=== PATIENT | female | born 1970 | race Caucasian/White ===

== ENCOUNTER 2019-08-25 23:30 | Inpatient (IN) | payer OTHER ==
[~2019-08-25] VITALS: Ht 162.6 cm; Wt 90.3 kg
[2019-08-26] VITALS (15 sets, daily range): BP systolic 125–146; BP diastolic 69–93
[2019-08-26] MEDS ORDERED: VENLAFAXINE HC150 MG PO (00:07)
[2019-08-26] MEDS ORDERED: TRAZODONE HCL100 MG PO (00:10)
[2019-08-26] MEDS ORDERED: ATIVAN0.5 M1 PO (00:11)
--- NOTE | 2019-08-26 03:25 | NUR ---
PT IS A DIRECT ADMIT FROM [facility]. PT WAS TRANSFERRED TO [facility]. PT IS ADMITTIED WITH PNEUMONIA VS CHF EXAC. PT IS EXPERINCING SHORTNESS OF AIR/DIFFICULTY BREATHING. PT IS ALERT AND ORIENTED, STABLE. VITAL SIGNS STABLE WITH TARCHYCARDIA NOTED ON THE MONITOR. ADMISSION EDUCATION AND ASSESSMENT COMPLETED. PT IS SEEN BY NURSE PRACTITION. ADMISSION EDUCATION AND ASSESSMENT COMPLETED. PT DENIES ANY PAIN. CONITNUE TO MONITOR BREATHING. NO FURTHER NEEDS REQUESTED AT THIS TIME.
[2019-08-26 04:58] LABS: HEMATOCRIT 38.3 % (37.0-47.0); HEMOGLOBIN 12.4 gm/dL (12.0-15.0); MCH 28.9 pg (26.0-34.0); MCHC 32.3 g/dL (28.0-37.0); MCV 89.5 fL (80.0-100.0); RBC 4.29 mil/uL (4.20-5.00); RDW 15.4 % (10.5-14.5); WBC 25.7 thou/uL (4.0-11.0)
[2019-08-26 05:20] LABS: CALCIUM 8.8 mg/dL (8.5-10.1); CREATININE 0.9 mg/dL (0.6-1.0); POTASSIUM 3.9 mmol/L (3.5-5.1); TOTAL BILIRUBIN 0.3 mg/dL (<0.1-1.0); TOTAL PROTEIN 6.7 g/dL (6.4-8.2); TROPONIN-I 0.06 ng/mL (<0.06)
--- NOTE | 2019-08-26 11:02 | 2DMMODE ---
[facility] [address] [place] [address] 2 D/M-MODE ECHOCARDIOGRAM Name: ELIZABETH AVERY Room #: 207-P ADM IN M.R.#: [id number] Admission: 08/25/19 Attend Phys: Deborah Pate Discharge: Date of : 68 Report #: [id number] THIS REPORT FOR: //name// APPROVED REPORT Study performed: 08/26/2019 08:20:10 EXAM: Limited 2D, Doppler, and color-flow Echocardiogram Patient Location: Bedside Room #: 207 Status: routine BSA: 1.97 HR: 108 bpm BP: 136/92 mmHg Rhythm: Tachycardia Other Information Study Quality: Good Indications Dyspnea. Hx: COPD, HTN. 2D Dimensions IVSd: 8.63 (7-11mm) LVDd: 58.00 mm PWd: 10.16 (7-11mm) LVDs: 47.56 (25-40mm) Aortic Valve AoV Peak Peter.: 1.45 m/s AO Peak Gr.: 8.37 mmHg Tricuspid Valve TR Peak Peter.: 3.08 m/s RAP Estimate: 10.00 mmHg TR Peak Gr.: 38.00 mmHg PA Pressure: 48.00 mmHg Left Ventricle Left ventricle is at the upper limits of normal. There is global hypokinesis of the left ventricle. There is normal left ventricular wall thickness. Left ventricular systolic function is mildly decreased. LVEF is 45%. This study is not technically sufficient to allow evaluation of the LV diastolic function. Right Ventricle The right ventricle is normal size. The right ventricular systolic [facility] [address] [place] [address] 2 D/M-MODE ECHOCARDIOGRAM Name: ELIZABETH AVERY Room #: 207-P ADM IN M.R.#: [id number] Admission: 08/25/19 Attend Phys: Deborah Pate Discharge: Date of : 68 Report #: [id number] function is normal. Atria Left atrium is dilated. The right atrium size is normal. Aortic Valve The aortic valve is normal in structure. Mild to moderate aortic regurgitation. There is no aortic valvular stenosis. Mitral Valve The mitral valve is normal in structure. Severe mitral regurgitation. Tricuspid Valve The tricuspid valve is normal in structure. Mild tricuspid regurgitation. Estimated PAP is 45mmHg Great Vessels IVC borderline dilated and collapses about 50% with inspiration. Pericardium There is no pericardial effusion. <Conclusion> Left ventricular systolic function is mildly decreased. There is global hypokinesis of the left ventricle. LVEF is 45%. The aortic valve is mildly sclerotic. Mild to moderate aortic regurgitation, no stenosis. The mitral valve is normal in structure. Severe mitral regurgitation. Mild tricuspid regurgitation. Estimated pulmonary artery pressure of 45mmHg There is no pericardial effusion. <ELECTRONICALLY SIGNED> By: Bernardo Barnhart MD, FAC 08/26/191101 01 01 Bernardo Barnhart MD, [facility] /INF
--- NOTE | 2019-08-26 12:57 | CATHLAB ---
[facility] [address] [place] [address] INVASIVE PROCEDURE REPORT Name: ELIZABETH AVERY Room #: 207-P ADM IN M.R.#: [id number] Admission: 08/25/19 Attend Phys: Deborah Pate Discharge: Date of : 68 Report #: [id number] THIS REPORT FOR: //name// APPROVED REPORT Study performed: 08/26/2019 11:02:30 Patient Details Patient Status: In-Patient Room #: 207 The patient is a 48 year-old female Event Personnel Bernardo Barnhart Electrical Intern, Zoe Saldaña RN RN, Vivien Hodges RTR, EXAM PROCTOR Monitor, Zi Bowen RTR Scrub Procedures Performed Art Access - R femoral artery* Zhen Access - R femoral vein Right and Left Heart Cath w/or w/o Coronarie [id number] RLHC Hemostasis w/ Mynx Hemostasis with Manual pressure 39483 Initial Mod Sed Same Phys/QHP Gr5y 439015 65787 Mod Sed Same Phys/QHP Ea 155988 Indication CHF Current Status: Yes , Dyspnea, Cardiomyopathy Procedure Narrative The patient was brought electively to the Cardiac Catheterization Laboratory and was prepped and draped in a sterile manner. The Right Groin^ was infiltrated with 1% Lidocaine subcutaneous anesthesia. A Right Heart Catheterization was performed with a 7 Fr. [place] catheter and pressure were recorded. Cardiac outputs were obtained by the Thermal Dilution method. A PINNACLE 6FR Sheath #[id number] sheath was inserted into the RFA. Coronary angiography was performed using coronary diagnostic catheters. The right coronary system was accessed and visualized with a JR4 catheter. The left coronary system was accessed and visualized with a JL4 catheter. The left ventricle was accessed and visualized with a angled pigtail catheter. Left ventricular/Aortic Valve gradient assessed via catheter pullback. Left ventriculogram was performed in 30 degree projection. Closure device was deployed with a 6 Fr MYNXGRIP 6/7F #[id number]. Hemostasis was obtained with manual pressure following sheath removal without any complications. The patient tolerated the procedure well and there were no complications associated with the procedure. There was no hematoma. [facility] [address] [place] [address] INVASIVE PROCEDURE REPORT Name: ELIZABETH AVERY Room #: 207-P [facility] IN .R.#: [id number] Admission: 08/25/19 Attend Phys: Deborah Pate Discharge: Date of : 68 Report #: [id number] Intraoperative Conscious Sedation Sedation start time: 11:29 Case end Time: 12:06 Fentanyl 100 mcg Versed 2 mg Fluoro Time: 2.07 minutes Dose: DAP 4938.60 cGycm2 565 mGy Contrast Type and Amount: Omnipaque 130 ml Diagnostic Cath Left Main Normal left main LAD Normal left anterior descending Diagonal 1 Large, single and bifurcating diagonal branch, angiographically normal Circumflex Large but nondominant circumflex OM1 High first marginal branch, angiographically normal OM2 Distally arising second marginal branch, angiographically normal Right Coronary The right coronary is angiographically normal, dominant RPLV Normal posterior lateral branch Left Ventriculography The left ventricle is normal in size with abnormalnormal contractility. The left ventricular ejection fraction is estimated to be 55-60%. Left ventricular wall motion abnormalities are not present. There is moderate-severe mitral insufficiency. Hemodynamics The right atrial mean pressure is 17 mmHg. The right ventricular pressure is 46/18 mmHg. The pulmonary artery pressure is 52/44 mmHg with a mean of 45 mmHg. The mean pulmonary capillary wedge pressure is 35 mmHg. The aortic pressure is 182/78 mmHg with a mean of 124 mmHg. The left ventricular pressure is 183/10 mmHg with a mean of mmHg. The left ventricular end diastolic pressure is 58 mmHg. There was no gradient across the aortic valve upon pullback. The cardiac output using thermo method is 5.53 L/min. The cardiac index using thermo method is 2.81 L/min/m2. Conclusion 1. Global and regional left ventricular systolic function at the lower limits of normal. Ejection fraction 55-60% 2. Severe mitral regurgitation suggested. Correlation with [facility] [address] [place] [address] INVASIVE PROCEDURE REPORT Name: ELIZABETH AVERY Room #: 207-P ADM IN M.R.#: [id number] Admission: 08/25/19 Attend Phys: Deborah Pate Discharge: Date of : 68 Report #: [id number] echocardiography recommended 3. Normal coronary vasculature. Right coronary dominant circulation. 4. Elevated right heart pressures including pulmonary artery wedge pressure <ELECTRONICALLY SIGNED> By: Bernardo Barnhart MD, [facility] 08/26/19 1256 1256 1256 Bernardo Barnhart MD, FAC /INF
--- NOTE | 2019-08-26 13:43 | EKG ---
[place] [address] [employer] [place] [address] ELECTROCARDIOGRAM REPORT Name: ELIZABETH AVERY Room #: 207-P ADM IN M.R.#: [id number] Admission: 08/25/19 Attend Phys: Deborah Lopez Discharge: Date of : 68 Report #: [id number] THIS REPORT FOR: //name// [facility] Test Date: 2019-08-26 Test Time: 08:05:10 Pat Name: ELIZABETH AVERY Department: Room: 207 P Gender: F Principal Bioinformatics Specialist: JC : 1970 Requested By: Bernardo Barnhart Order Number: [id number] MD: Bernardo Barnhart Measurements Intervals [place] Rate: 103 P: 62 VA: 148 QRS: 25 QRSD: 98 T: 72 QT: 365 QTc: 478 Interpretive Statements Sinus tachycardia Otherwise normal tracing No previous ECG available for comparison Electronically Signed On 08-26-2019 13:43:15 DRY WALL PLASTERER by Bernardo Barnhart [email or web address] <ELECTRONICALLY SIGNED> By: Bernardo Barnhart MD, [facility] 08/26/19 1343 0805 4 Bernardo Barnhart MD, FACC /EPI
--- NOTE | 2019-08-26 17:40 | NUR ---
pt and family members aware of CHF diagnoses, teaching done, pt seems somewhat anxious, teaching needs to be reinforced, family verbalizes understanding and are supportive.
--- NOTE | 2019-08-27 04:51 | NUR ---
ASSUMED PT CARE AT 1900. NO SIGN OF DISTRESS NOTED IN PT. PT IS ALERT AND ORIENTED. ASSESSMENT COMPLETED AND DOCUMENTED. GROIN SITE IS INTACT. PT IS STABLE. CONTINUE TO MONITOR BREATHING. SCHEUDLED MEDS ADMINISTERED TO PT. CONTINUE TO MONITOR, DENIES ANY FURTHER NEEDS AT THIS TIME.
[2019-08-27 05:00] VITALS: BP 145/82
[2019-08-27 05:41] LABS: HEMATOCRIT 39.2 % (37.0-47.0); HEMOGLOBIN 12.4 gm/dL (12.0-15.0); MCH 28.4 pg (26.0-34.0); MCHC 31.6 g/dL (28.0-37.0); MCV 89.8 fL (80.0-100.0); PLATELET COUNT 320 thou/uL (150-400); RBC 4.36 mil/uL (4.20-5.00); RDW 15.6 % (10.5-14.5); WBC 24.7 thou/uL (4.0-11.0)
[2019-08-27 06:27] LABS: ALBUMIN 2.9 g/dL (3.4-5.0); CALCIUM 8.8 mg/dL (8.5-10.1); CREATININE 0.9 mg/dL (0.6-1.0); MAGNESIUM 1.9 mg/dL (1.8-2.4); POTASSIUM 3.9 mmol/L (3.5-5.1); TOTAL BILIRUBIN 0.3 mg/dL (<0.1-1.0); TOTAL PROTEIN 6.5 g/dL (6.4-8.2); TROPONIN-I 0.11 ng/mL (<0.06)
[2019-08-27 06:35] LABS: PLATELET ESTIMATE NORMAL
--- NOTE | 2019-08-27 07:39 | HC ---
[facility] [place] [address] CONSULTATION Name: ELIZABETH AVERY Room #: 207-P ADM IN M.R.#: [id number] Admission: 08/25/19 Attend Phys: Deborah Lopez Discharge: Date of : 68 Report #: [id number] THIS REPORT FOR: //name// CC: FAM unknown Deborah Lopez DATE OF SERVICE: 08/27/2019 ATTENDING PHYSICIAN: Dr. Lopez. REASON FOR EVALUATION: Suspected pneumonitis. HISTORY OF PRESENT ILLNESS: Chart reviewed, the patient examined. This is a 48-year-old woman who actually dates her illness back to March or April 2019. She has had ongoing issue with nonproductive cough and some wheezing. She has been evaluated multiple times, both in outpatient as well as inpatient settings. I met at times, diagnosed with sinusitis, bronchitis. She received several courses of antibiotics and which seemed to be helpful. She was seen and admitted briefly to the hospital within the last week, noted those records. CT of the chest was otherwise clear. On presentation, she was found to have markedly elevated white count of 25.7. It is notable she has been on prednisone. ProBNP was 3462. Chest x-ray showed cardiomegaly, pulmonary vascular congestion, bilateral perihilar infiltrates. She denies any particular fevers. She notes her weight is actually increased, which she attributes to excess fluid. She underwent an echo, which was remarkable for severe mitral regurgitation. She was empirically placed on combination therapy with ceftriaxone as well as levofloxacin. She is lucid at this point. Denies significant gastrointestinal-related complaints. Her appetite has been somewhat variable. ALLERGIES: None known. CURRENT MEDICATIONS: Include lisinopril, enoxaparin, ipratropium, enoxaparin, ipratropium and albuterol inhaler, furosemide, guaifenesin, temazepam, p.r.n. analgesics, antiemetics, ceftriaxone, levofloxacin, metoprolol, famotidine, venlafaxine, trazodone, methylprednisolone, ondansetron. PAST MEDICAL HISTORY: Confirmed to have severe mitral regurgitation, cardiomyopathy, history of congestive heart failure, hypertension, left knee surgery. SOCIAL HISTORY: Former smoker. No ethanol. No illicit drug use. FAMILY HISTORY: Noncontributory. REVIEW OF SYSTEMS: Otherwise, unremarkable 10-point review of systems with [address] [address] CONSULTATION Name: ELIZABETH AVERY Room #: 207-P [facility] IN M.R.#: [id number] Admission: 08/25/19 Attend Phys: Deborah Lopez Discharge: Date of : 68 Report #: [id number] exception noted above. PHYSICAL EXAMINATION: GENERAL: She is in ueym-dr-bzleogtb distress secondary to respiratory difficulty. She is supplemented with nasal cannula oxygen. Does have what appears to be a somewhat generalized edema, although it is not as evident in lower extremities, reasonably well nourished. VITAL SIGNS: Temperature 98.2, pulse 106, respirations 18, blood pressure 145/82. SKIN: Warm, dry. HEENT: Normocephalic. Extraocular muscles intact. NECK: Supple. LUNGS: Got bilateral wheezes, diffuse rhonchi, some crackles as well. HEART: Tachycardic, regular and appears to have overtly loud systolic murmur. ABDOMEN: Somewhat distended. There is some excess abdominal wall edema. GENITOURINARY: Deferred. LABORATORY DATA: Initial white count 25.7, H and 12.4 and 38.3, platelets of 300. Electrolytes: Sodium 137, potassium 3.9, chloride 104, bicarb is 25, anion gap of 8, BUN and creatinine 16 and 0.9, glucose of 120. AST of 63, ALT of 76. Total protein of 67, albumin of 3.0. TSH 0.847. Sed rate of 15. CRP of 20.2. Chest x-ray as described above. ASSESSMENT: Pneumonitis, likely multifactorial. She describes a prolonged history of respiratory tract signs and symptoms largely contributing because the mitral regurgitation with congestive heart failure. We will continue the empiric antimicrobials for now and to get sputum for culture. We will see how she responds to current medicine regimen. Thank you, we will follow. <ELECTRONICALLY SIGNED> By: Amari Lopes MD 08/27/19 0739 0639 0729 Amari Lopes MD /nt
[2019-08-27 08:00] VITALS: BP 144/76
[2019-08-27 12:00] VITALS: BP 137/79
--- NOTE | 2019-08-27 12:00 | EKG ---
[place] [address] [place] [address] ELECTROCARDIOGRAM REPORT Name: ELIZABETH AVERY Room #: 207-P ADM IN M.R.#: [id number] Admission: 08/25/19 Attend Phys: Deborah Lopez Discharge: Date of : 68 Report #: [id number] THIS REPORT FOR: //name// [facility] Test Date: 2019-08-27 Test Time: 07:00:07 Pat Name: ELIZABETH AVERY Department: Room: 207 P Gender: F Referral Agent: Candy PRINCE : 1970 Requested By: Vincent Haji Order Number: [id number] MD: Bernardo Barnhart Measurements Intervals [place] Rate: 98 P: 50 WV: 148 QRS: 25 QRSD: 95 T: 59 QT: 357 QTc: 456 Interpretive Statements Sinus rhythm Normal tracing Compared to ECG 08/26/2019 08:05:10 Sinus tachycardia no longer present Electronically Signed On 08-27-2019 12:00:02 SHAKE CUTTER by Bernardo Barnhart [email or web address] <ELECTRONICALLY SIGNED> By: Bernardo Barnhart MD, [facility] 08/27/19 1200 0700 9 Bernardo Barnhart MD, FACC /EPI
[2019-08-27 15:55] VITALS: BP 149/87
--- NOTE | 2019-08-27 17:54 | NUR ---
PT CARE ASSUMED APPROX 0700. ASSESSMENTS CHARTED. DENIES PAIN AND SOA. VSS. UP WTIH STEADY GAIT. PT HAS SHOWER THIS SHIFT. TOLERATED. ALSO LEFT UNIT FOR SPIROMETRY STUDY. FAMILY AT BEDSIDE MOST OF SHIFT. GIVEN CLINICAL UPDATES. PT UPDATED TO POC. PT TEARFUL OFTEN. MANAGING ANXIETY WITH ATIVAN. TOLERATING POC. NO DISTRESS NOTED.
[2019-08-27 20:54] VITALS: BP 147/99
[2019-08-27 22:06] LABS: HAV IgM AB (ANTI-HAV IgM) Negative (Negative); HEPATITIS B SURFACE AG Negative (Negative); HEPATITIS C VIRUS AB <0.1 (0.0-0.9)
[2019-08-28 04:41] LABS: HEMATOCRIT 41.5 % (37.0-47.0); HEMOGLOBIN 13.5 gm/dL (12.0-15.0); MCH 28.9 pg (26.0-34.0); MCHC 32.5 g/dL (28.0-37.0); MCV 88.9 fL (80.0-100.0); RBC 4.66 mil/uL (4.20-5.00); RDW 15.4 % (10.5-14.5); WBC 20.6 thou/uL (4.0-11.0)
--- NOTE | 2019-08-28 04:43 | NUR ---
ASSUMED PT CARE AT 1900. PT IS ALERT AND ORIENTED WITH NO SIGN OF DISTRESS NOTED IN PATIENT. ASSESSMENT COMPLETED AND DOCUMENTED. PT BECAME UPSET THAT ABOUT HER TRAZODONE BEEN ON HOLD. PHYSICIAN NOTIFIED ABOUT MED BEEN ON HOLD. TRAZODONE RESUMED BY ALLOPATHIC DOCTOR. SCHEDULED MEDS ADMINISTERED TO PT. CONTINUE TO MONITOR BRETHING. DENIES ANY FURTHER NEEDS AT THIS TIME.
[2019-08-28 04:49] LABS: CALCIUM 9.7 mg/dL (8.5-10.1); CREATININE 1.2 mg/dL (0.6-1.0); POTASSIUM 3.8 mmol/L (3.5-5.1)
[2019-08-28 05:39] VITALS: BP 128/74
[2019-08-28 08:00] VITALS: BP 120/60
[2019-08-28 11:50] VITALS: BP 124/64
--- NOTE | 2019-08-28 11:51 | EKG ---
[facility] [address] [place] [address] ELECTROCARDIOGRAM REPORT Name: ELIZABETH AVERY Room #: 207-P ADM IN M.R.#: [id number] Admission: 08/25/19 Attend Phys: Deborah Lopez Discharge: Date of : 68 Report #: [id number] THIS REPORT FOR: //name// [facility] Test Date: 2019-08-28 Test Time: 11:23:39 Pat Name: ELIZABETH AVERY Department: Room: 207 P Gender: F Ferryboat Operator Helper: ANTIONETTE : 1970 Requested By: Bernardo Barnhart Order Number: [id number] MD: Bernardo Barnhart Measurements Intervals [place] Rate: 92 P: 49 CT: 135 QRS: 0 QRSD: 94 T: 41 QT: 383 QTc: 474 Interpretive Statements Sinus rhythm Normal tracing Compared to ECG 08/27/2019 07:00:07 No significant change was found Electronically Signed On 08-28-2019 11:51:08 MEN'S GARMENT FITTER by Bernardo Barnhart [email or web address] <ELECTRONICALLY SIGNED> By: Bernardo Barnhart MD, [facility] 08/28/19 1151 1123 22 Bernardo Barnhart MD, FACC /EPI
--- NOTE | 2019-08-28 17:12 | NUR ---
PT CARE ASSUMED APPROX 0700. DENIES PAIN AND SOA. VSS. ASSESSMENT CHARTED. UP WITH STEADY GAIT. PT VERY TEARFUL EXPRESSING FREQUENTLY THAT SHE WANTS TO FIX HER VAVLE ISSUES. POC EXPLAINED SEVERAL TIMES TO EDUCATE AND REASSURE PT. PT REMAINS TEARFUL AND UNSURE OF THINGS. TOLERATING POC. NO DISTRESS NOTED.
[2019-08-28 21:00] VITALS: BP 144/81
[2019-08-29 04:33] VITALS: BP 151/99
[2019-08-29 05:51] LABS: CREATININE 1.1 mg/dL (0.6-1.0); POTASSIUM 4.2 mmol/L (3.5-5.1)
--- NOTE | 2019-08-29 07:13 | NUR ---
patient cares were assumed at shif change. patient was assessed and meds were passed. patient is very anxious about her condition. passed consult to peggey the a possible cardio rehab might be needed. patient was rounded on hourly, bed in a low and locked position. patient independent in her room.
--- NOTE | 2019-08-29 09:15 | TEE ---
[facility] [address] [place] [address] TRANSESOPHAGEAL ECHOCARDIOGRAM Name: ELIZABETH AVERY Room #: 207-P ADM IN M.R.#: [id number] Admission: 08/25/19 Attend Phys: Deborah Pate Discharge: Date of : 68 Report #: [id number] THIS REPORT FOR: //name// APPROVED REPORT Study performed: 08/29/2019 08:06:03 EXAM: Transesophageal Echocardiogram Patient Location: In-Patient Room #: 207 Status: routine BSA: 1.98 HR: 102 bpm BP: 81/66 mmHg Rhythm: Sinus tach Other Information Study Quality: Good Indications Mitral regurgitation. COPD, HTN, cardiomyopathy. Echo Enhancing Agent Indication: Rule out Shunt Agent(s) / Amount(s) Used: Agitated Saline 6 cc Procedure After obtaining informed consent, patient underwent transesophageal echo in the [employer]. Type of Sedation : Conscious Sedation Sedation was administered by Blanca Slade RN. Sedation was achieved intravenously with: Versed (5) Fentanyl (200) Transesophageal probe was inserted and advanced into esophagus without difficulty by Bernardo Barnhart MD. The MIGUELITO was performed without complications. Throughout the procedure, the blood pressure, pulse oximetry, cardiac rhythm, and rate were monitored. The patient tolerated the procedure without adverse effects. Recovery from conscious sedation was uneventful and vital signs were stable. Left Ventricle Left ventricle is at the upper limits of normal. There is global [facility] [address] [place] [address] TRANSESOPHAGEAL ECHOCARDIOGRAM Name: ELIZABETH AVERY Room #: 207-P ADM IN M.R.#: [id number] Admission: 08/25/19 Attend Phys: Deborah Pate Discharge: Date of : 68 Report #: [id number] hypokinesis of the left ventricle. There is normal left ventricular wall thickness. Left ventricular systolic function is mild to moderately decreased. LVEF is 40-45%. Right Ventricle The right ventricle is normal size. The right ventricular systolic function is normal. Atria Left atrium is dilated. No thrombus is visualized in the left atrium or appendage. No shunting noted by contrast bubble injection. The right atrium size is normal in size. Highly mobile 0.8 x 0.8 cm mass adherent to the atrial septum in the right atrium. 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 Aortic Valve The aortic valve is trileaflet. 1.5 x 1.5 oval mass adherent to the aortic valve on the aortic side of the non-coronary cusp leaflet. Mild aortic regurgitation. There is no aortic valvular stenosis. Mitral Valve The mitral valve is normal in structure. Highly mobile irregular bordered mass adherent to the chordal structures of the anterior leaflet of the mitral valve Moderate to moderately severe mitral regurgitation No evidence of mitral valve stenosis. Tricuspid Valve The tricuspid valve is normal in structure. Mild tricuspid regurgitation. Pulmonic Valve The pulmonary valve is normal in structure. Trace pulmonic regurgitation. Great Vessels The aortic root is normal in size. The ascending aorta is normal in size. IVC is normal in size and collapses >50% with inspiration. Pericardium There is no pericardial effusion. Critical Notification Critical Value: Yes [facility] [address] [place] [address] TRANSESOPHAGEAL ECHOCARDIOGRAM Name: ELIZABETH AVERY Room #: 207-P ADM IN M.R.#: [id number] Admission: 08/25/19 Attend Phys: Deborah Villa [facility] Discharge: Date of : 68 Report #: [id number] <Conclusion> Left ventricular systolic function is mild to moderately decreased. There is global hypokinesis of the left ventricle. LVEF is 40-45%. No thrombus is visualized in the left atrium or appendage. No shunting noted by contrast bubble injection. The right atrium size is normal. 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 The aortic valve is trileaflet. Large 1.5 x 1.5 oval predominantly nonmobile mass adherent to the aortic valve/wall of the sinus of Valsalva on the aortic side of the non-coronary cusp leaflet. Mild aortic regurgitation, no stenosis The mitral valve is normal in structure. Highly mobile irregular bordered mass adherent to the chordal structures of the anterior leaflet of the mitral valve Moderate to moderately severe mitral regurgitation The ascending aorta is normal in size. There is no pericardial effusion. 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 Vegetations are thought to be less likely. <ELECTRONICALLY SIGNED> By: Bernardo Barnhart MD, [facility] 08/29/19914 4 4 Bernardo Barnhart MD, [facility] /INF
[2019-08-29 09:40] VITALS: BP 111/81
[2019-08-29 11:50] LABS: APTT 21.1 Seconds (24.5-32.8); INR 1.1; PROTIME 10.9 Seconds (9.3-11.4)
[2019-08-29 11:55] VITALS: BP 87/65
--- NOTE | 2019-08-29 13:50 | EKG ---
[place] [address] [facility] [place] [address] ELECTROCARDIOGRAM REPORT Name: ELIZABETH AVERY Room #: 207-P ADM IN M.R.#: [id number] Admission: 08/25/19 Attend Phys: Deborah Lopez Discharge: Date of : 68 Report #: [id number] THIS REPORT FOR: //name// [facility] Test Date: 2019-08-29 Test Time: 11:22:27 Pat Name: ELIZABETH AVERY Department: Room: 207 P Gender: F Linux Vmware Administrator: Mirian MOSQUEDA : 1970 Requested By: Farshad Keita Order Number: [id number] MD: Andrei Oscar Measurements Intervals [place] Rate: 91 P: 17 [place]: 145 QRS: 2 QRSD: 95 T: 43 QT: 401 QTc: 494 Interpretive Statements Sinus rhythm Probable left atrial enlargement Left ventricular hypertrophy Borderline prolonged QT interval Compared to ECG 08/28/2019 11:23:39 Left ventricular hypertrophy now present Electronically Signed On 08-29-2019 13:50:19 CENTRAL CONTROL ROOM OPERATOR by Andrei Oscar [email or web address] <ELECTRONICALLY SIGNED> By: Andrei Oscar MD 08/29/19 1350 1122 1122 Andrei Oscar MD /MARCO
[2019-08-29 16:30] VITALS: BP 105/75
--- NOTE | 2019-08-29 19:20 | NUR ---
ASSESSMENT CHARTED. PT ALERT AND ORIENTED REPORT HAVING CHEST PAIN. CHEST PAIN PROTOCAL INITIATED. CARDIOLOGY AND DR. JORDAN NOTIFIED. FAMILY UPDATED ON PT'S PLAN OF CARE. SEEN BY DR. MALAGON. ORDERS NOTED. PRN ANXIETY AND PAIN MED GIVEN. WILL CONTINUE TO MONITOR.
[2019-08-29 20:25] VITALS: BP 93/50
[2019-08-29 22:18] LABS: URINE BILIRUBIN NEGATIVE (Negative); URINE BLOOD NEGATIVE (Negative); URINE CLARITY CLEAR; URINE COLOR YELLOW; URINE GLUCOSE-RANDOM* NEGATIVE (Negative); URINE KETONES NEGATIVE (Negative); URINE LEUKOCYTES-REFLEX NEGATIVE (Negative); URINE NITRITE-REFLEX NEGATIVE (Negative); URINE PROTEIN (DIPSTICK) NEGATIVE (Negative); URINE SPECIFIC GRAVITY 1.025 (1.005-1.035); URINE UROBILINOGEN 0.2 E.U./dl (0.2-1.0)
[2019-08-29 23:06] LABS: GLYCOHEMOGLOBIN (HGB A1C) 5.5 % (4.8-5.6)
[2019-08-30 00:19] VITALS: BP 101/65
[2019-08-30 04:55] VITALS: BP 95/48
--- NOTE | 2019-08-30 05:12 | NUR ---
ASSUMED PT CARE AT 1900. PT IS ALERT AND ORIENTED WITH NO SIGN OF DISTRESS NOTED IN PT. SPOUSE AT BEDSIDE. PT IS STABLE. ASSESSMENT COMPLETED AND DOCUMETED. SCHEDULED MEDS ADMINISTERED TO PT. PAIN MED ADMINISTERED UPON REQUEST. VSS. PT IS STABLE THROUGHOUT THE NIGHT. DENIES ANY FURTHER NEEDS AT THIS TIME.
[2019-08-30 08:18] VITALS: BP 101/60
[2019-08-30 11:34] VITALS: BP 91/56
--- NOTE | 2019-08-30 16:15 | NUR ---
patient admits from [facility] due to insurance in network. 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 She has [employer] insurance. patient admits with pna and chf. She is found to have cardiac lesions. Eddie yesterday. Casemgt following for dc planning. Anticipate dc home no needs.
[2019-08-30 17:08] LABS: COMPLEMENT-C3 151 mg/dL (82-167); COMPLEMENT-C4 28 mg/dL (14-44)
[2019-08-30 17:26] VITALS: BP 98/56
--- NOTE | 2019-08-30 18:43 | NUR ---
PT C/O CONSTIPATION, CALLED DR JORDAN, HE STATES HE WILL PUT IN ORDERS. PT AMBULATED UNIT TODAY. ON 1 L DAVID PRN. CONCERNED ABOUT POC. WANTS TO TALK TO SOCIAL WORK ABOUT SECOND OPINION AT ANOTHER FACILITY, SPOKE WITH JORDON.
[2019-08-30 19:58] VITALS: BP 114/56
[2019-08-30 20:47] LABS: MAGNESIUM 2.4 mg/dL (1.8-2.4); POTASSIUM 3.5 mmol/L (3.5-5.1)
[2019-08-31 04:45] VITALS: BP 100/65
--- NOTE | 2019-08-31 05:41 | NUR ---
ASSUMED PT CARE AT 1900. PT IS ALERT AND ORIENTED WITH NO SIGN OF DISTRESS NOTED IN PT. CONTINUE TO MONITOR PATIENT. FAMILY AT BEDSIDE. ASSESSMENT COMPLETED AND DOCUMENTED. SCHEDULED MEDS ADMINISTERED TO PT. PT IS VERBALIZES PAIN TO THE RIGHT MID BACK AND CONSTIPATION. ALSO SHE WAS UPSET ABOUT PAIN MED (HYDORCODONE) BEEN DISCONTINUE. PT CONTINUE TO VERBALIZE PAIN DURING THE SHIFT. TYLENOL ADMINISTERED BUT NO RELIEF. PT IS WORRIED ABOUT RECENT DIGNOSIS. CONTINUE TO MONITOR PT. DENIES ANY FURTHER NEEDS AT THIS TIME.
[2019-08-31 05:48] LABS: HEMATOCRIT 43.4 % (37.0-47.0); HEMOGLOBIN 14.1 gm/dL (12.0-15.0); MCH 29.2 pg (26.0-34.0); MCHC 32.6 g/dL (28.0-37.0); MCV 89.8 fL (80.0-100.0); RBC 4.83 mil/uL (4.20-5.00); RDW 15.1 % (10.5-14.5); WBC 18.6 thou/uL (4.0-11.0)
[2019-08-31 05:59] LABS: CREATININE 1.4 mg/dL (0.6-1.0)
[2019-08-31] MEDS ORDERED: LISINOPRIL10 MG PO (08:32)
[2019-08-31] MEDS ORDERED: COREG6.25 MG PO (08:32)
[2019-08-31 08:39] VITALS: BP 126/64
[2019-08-31] MEDS ORDERED: TORSEMIDE10 MG PO (08:56)
[2019-08-31] MEDS ORDERED: METOPROLOL SUCC25 M1 PO (08:56)
[2019-08-31 09:03] LABS: COLLECTION DURATION 24 hours; TOTAL VOLUME 1500 mL
--- NOTE | 2019-08-31 10:14 | NUR ---
ASSUMED CARE OF PT APPROX 0715, A&0X4, LIKES ROOM DARK AND COLD, SPOUSE AT BEDSIDE. SEE SEPARATE INTERVENTIONS FOR ASSESSMENTS, CADIAC MONITORED, 24H URINE PICKED UP AND TAKEN TO LAB. ENCOURAGED BOTH TO USE CALL LIGHT FOR NEEDS. WILL PRINT OUT CHF INFO FOR HER SHE HAD MULTIPLE QUESTIONS. TAKES HYDROCODONE AND IT WAS D/C'D. GAVE TYLENOL AND ATIVAN TO HELP W/ANXIETY AND CHRONIC PAIN.
[2019-08-31 11:28] VITALS: BP 126/64
[2019-08-31 11:48] VITALS: BP 126/64
--- NOTE | 2019-08-31 14:06 | NUR ---
Patient sp with RN regarding a second opinion for CTS. RN requested casemgt inquire if possibility. Patient has [employer] ins which no other CTS in system. 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 All sp with patient prior to dc.
[2019-09-01 19:11] LABS: ANA INTERPRETATION Negative (())
== END 2019-08-31 12:27 | disposition home or self-care (01) | DRG 286 ==
LOC: 2N 23:30 → ENTRNSPT 08-31 11:47 → EDTRNSPTSTS 08-31 12:01 → 2N 08-31 12:27
PROVIDERS: Hospitalist; Internal Medicine; Internal Medicine Pulmonary Disease; Nurse Practitioner Acute Care; Specialist; Surgery Vascular Surgery; ADMIT Hospitalist
PROC: B2151ZZ Fluoroscopy of Left Heart using Low Osmolar Contrast (ICD-10-PCS; principal; 2019-08-26)
PROC: 4A023N8 Measurement of Cardiac Sampling and Pressure, Bilateral, Percutaneous Approach (ICD-10-PCS; principal; 2019-08-26)
PROC: B2111ZZ Fluoroscopy of Multiple Coronary Arteries using Low Osmolar Contrast (ICD-10-PCS; principal; 2019-08-26)
PROC: B24BZZ4 Ultrasonography of Heart with Aorta, Transesophageal (ICD-10-PCS; 2019-08-29)
DX: I11.0 Hypertensive heart disease with heart failure (principal); J96.21 Acute and chronic respiratory failure with hypoxia; J18.9 Pneumonia, unspecified organism; J44.1 Chronic obstructive pulmonary disease with (acute) exacerbation; J44.0 Chronic obstructive pulmonary disease with (acute) lower respiratory infection; I50.43 Acute on chronic combined systolic (congestive) and diastolic (congestive) heart failure; I42.9 Cardiomyopathy, unspecified; K21.9 Gastro-esophageal reflux disease without esophagitis; F32.9 Major depressive disorder, single episode, unspecified; F41.9 Anxiety disorder, unspecified; F17.210 Nicotine dependence, cigarettes, uncomplicated; R00.0 Tachycardia, unspecified; Z96.659 Presence of unspecified artificial knee joint; E66.9 Obesity, unspecified; I34.0 Nonrheumatic mitral (valve) insufficiency; D72.829 Elevated white blood cell count, unspecified; T38.0X5A Adverse effect of glucocorticoids and synthetic analogues, initial encounter; Y92.89 Other specified places as the place of occurrence of the external cause; Z80.1 Family history of malignant neoplasm of trachea, bronchus and lung; Z83.6 Family history of other diseases of the respiratory system; Z82.49 Family history of ischemic heart disease and other diseases of the circulatory system; Z71.6 Tobacco abuse counseling; Z68.34 Body mass index [BMI] 34.0-34.9, adult; Z79.899 Other long term (current) drug therapy
CPT/HCPCS: 10081

== ENCOUNTER 2019-09-06 13:30 | Emergency (ER) | payer OTHER ==
[~2019-09-06] VITALS: Ht 162.6 cm; Wt 92.5 kg
[~2019-09-06 13:30] MED LIST: ATIVAN0.5 M1 PO; COREG6.25 MG PO; LISINOPRIL10 MG PO; METOPROLOL SUCC25 M1 PO; TORSEMIDE10 MG PO; TRAZODONE HCL100 MG PO; VENLAFAXINE HC150 MG PO
[2019-09-06 14:44] LABS: ABSOLUTE NEUTROPHILS 10.1 thou/uL (1.4-8.2); BASOPHILS 0.7 % (0.0-2.0); EOSINOPHILS 1.5 % (0.0-3.0); HEMATOCRIT 39.1 % (37.0-47.0); LYMPHOCYTES 10.7 % (24.0-44.0); MCH 29.6 pg (26.0-34.0); MCHC 33.2 g/dL (28.0-37.0); MCV 89.1 fL (80.0-100.0); MONOCYTES 6.4 % (1.0-8.0); PLATELET COUNT 432 thou/uL (150-400); POLYS 80.7 % (36.0-66.0); RBC 4.38 mil/uL (4.20-5.00); WBC 12.5 thou/uL (4.0-11.0)
[2019-09-06 15:00] LABS: ANION GAP 8 mmol/L (7-16); BUN 13 mg/dL (7-18); CALCIUM 9.3 mg/dL (8.5-10.1); CHLORIDE 99 mmol/L (98-107); CO2 30 mmol/L (21-32); CREATININE 1.1 mg/dL (0.6-1.0); GLUCOSE 114 mg/dL (74-106); POTASSIUM 4.1 mmol/L (3.5-5.1); SODIUM 137 mmol/L (136-145)
[2019-09-06 15:09] LABS: TROPONIN-I <0.06 ng/mL (<0.06)
[2019-09-06] MEDS ORDERED: SENNA-DOCUSATE1 EAC1 PO (19:03)
[2019-09-06] MEDS ORDERED: ELIQUIS5 M1 PO (19:03)
[2019-09-06] MEDS ORDERED: NORCO 5-325 TA1 EAC1 PO (19:03)
[2019-09-06 19:39] VITALS: BP 108/70
--- NOTE | 2019-09-08 17:10 | EKG ---
[place] [address] [facility] [place] [address] ELECTROCARDIOGRAM REPORT Name: ELIZABETH AVERY Room #: DEP Karon#: [id number] Admission: 09/06/19 Attend Phys: Discharge: 09/06/19 Date of : 68 Report #: [id number] THIS REPORT FOR: //name// [facility] ED Test Date: 2019-09-06 Test Time: 13:35:45 Pat Name: ELIZABETH AVERY Department: Room: Gender: F Sample Carrier: REBEKAH : 1970 Requested By: Aliroi Hearn Order Number: [id number] MD: Andrei Oscar Measurements Intervals [place] Rate: 105 P: 35 NV: 150 QRS: 10 QRSD: 95 T: 49 QT: 337 QTc: 446 Interpretive Statements Sinus tachycardia Probable left atrial enlargement Baseline wander in lead(s) V1 Compared to ECG 08/29/2019 11:22:27 Sinus rhythm no longer present Left ventricular hypertrophy no longer present Electronically Signed On 09-08-2019 17:09:40 [employer] WASH ATTENDANT [employer] by Adnrei Oscar [email or web address] <ELECTRONICALLY SIGNED> By: Andrei Oscar MD 09/08/19 1709 1335 [id number] Andrei Oscar MD /EPI
[2019-09-09] MEDS ORDERED: TRULANCE3 MG PO (00:01)
[2019-09-11] MEDS ORDERED: ELIQUIS5 M1 PO (10:53)
[2019-09-11] MEDS ORDERED: ELIQUIS5 MG PO (10:53)
[2019-09-11] MEDS ORDERED: CLOTRIMAZOLE10 MG PO (10:53)
[2019-09-11] MEDS ORDERED: NICOTINE TRANSD21 M1 TRANSDERM (10:53)
== END 2019-09-06 19:41 | disposition home or self-care (01) ==
LOC: ER 13:30
PROVIDERS: Emergency Medicine
DX: I26.99 Other pulmonary embolism without acute cor pulmonale (principal); I10 Essential (primary) hypertension; J44.9 Chronic obstructive pulmonary disease, unspecified; K21.9 Gastro-esophageal reflux disease without esophagitis; F41.9 Anxiety disorder, unspecified; F32.9 Major depressive disorder, single episode, unspecified; F17.210 Nicotine dependence, cigarettes, uncomplicated

== ENCOUNTER → 2019-12-02 | Outpatient (CLI) | payer OTHER ==
[~2019-12-02] MED LIST changes: +CLOTRIMAZOLE10 MG PO; +ELIQUIS5 M1 PO; +ELIQUIS5 MG PO; +NICOTINE TRANSD21 M1 TRANSDERM; +NORCO 5-325 TA1 EAC1 PO; +SENNA-DOCUSATE1 EAC1 PO; +TRULANCE3 MG PO
--- NOTE | 2019-12-02 15:58 | 2DMMODE ---
[facility] [place] [address] 2 D/M-MODE ECHOCARDIOGRAM Name: ELIZABETH AVERY Room #: REG ASHELY Karon#: [id number] Admission: 12/02/19 Attend Phys: Arianna Osorio Discharge: Date of : 68 Report #: [id number] THIS REPORT FOR: cc: FAM - Family physician unknown FAM - Family physician unknown Radhames Hollis MD [facility] ~ APPROVED REPORT Study performed: 12/02/2019 13:45:42 EXAM: Comprehensive 2D, Doppler, and color-flow Echocardiogram Patient Location: Out-Patient Status: routine BSA: 1.98 HR: 90 bpm BP: 110/72 mmHg Rhythm: NSR Other Information Study Quality: Good Indications History of aortic valve mass, 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 Masses noted on MIGUELITO done 08/2019. 2D Dimensions RVDd: 24.51 mm IVSd: 9.01 (7-11mm) LVOT Diam: 21.16 (18-24mm) LVDd: 52.33 mm PWd: 8.86 (7-11mm) LVDs: 46.90 (25-40mm) Aortic Root: 33.09 mm Volumes Left Atrial Volume (Systole) Single Plane 4CH: 29.59 mL Single Plane 2CH: 45.50 mL LA ESV Index: 20.00 mL/m2 Aortic Valve AoV Peak Peter.: 1.41 m/s AO Peak Gr.: 7.93 mmHg [facility] [address] [place] [address] 2 D/M-MODE ECHOCARDIOGRAM Name: ELIZABETH AVERY [id number] Admission: 12/02/19 Attend Phys: Alirio Phan Discharge: Date of : 68 Report #: [id number] Pulmonary Valve PV Peak Peter.: 0.86 m/s PV Peak Gr.: 2.97 mmHg Tricuspid Valve TR Peak Peter.: 2.28 m/s RAP Estimate: 5.00 mmHg TR Peak Gr.: 21.00 mmHg PA Pressure: 26.00 mmHg Left Ventricle The left ventricle is normal size. There is global hypokinesis of the left ventricle. There is normal left ventricular wall thickness. Left ventricular systolic function is moderately decreased. LVEF is 40%. This study is not technically sufficient to allow evaluation of the LV diastolic function. Right Ventricle The right ventricle is normal size. The right ventricular systolic function is low normal. Atria The left atrium size is normal. The right atrium size is normal. Aortic Valve The aortic valve is normal in structure. Mild aortic regurgitation. There is no aortic valvular stenosis. Mitral Valve The mitral valve is normal in structure. Moderate mitral regurgitation. Tricuspid Valve The tricuspid valve is normal in structure. Mild tricuspid regurgitation. Estimated PAP is 25-30mmHg. Pulmonic Valve The pulmonary valve is normal in structure. Trace pulmonic regurgitation. Great Vessels The aortic root is normal in size. IVC is normal in size and collapses >50% with inspiration. Pericardium There is no pericardial effusion. [facility] [address] [place] [address] 2 D/M-MODE ECHOCARDIOGRAM Name: ELIZABETH AVERY Room #: REG CL [facility]#: [id number] Admission: 12/02/19 Attend Phys: Alirio Phan Discharge: Date of : 68 Report #: [id number] <Conclusion> The left ventricle is normal size. There is global hypokinesis of the left ventricle. LVEF is 40%. This study is not technically sufficient to allow evaluation of the LV diastolic function. The right ventricle is normal size. The left atrium size is normal. Mild aortic regurgitation. Moderate mitral regurgitation. Mild tricuspid regurgitation. Estimated PAP is 25-30mmHg. The aortic root is normal in size. There is no pericardial effusion. <ELECTRONICALLY SIGNED> By: Radhames Hollis MD, [facility] 12/02/19 1556 [id number] Radhames Hollis MD, FACC /INF
== END ==
LOC: CV 10:48
PROVIDERS: ATTEND Internal Medicine Cardiovascular Disease
DX: I08.3 Combined rheumatic disorders of mitral, aortic and tricuspid valves (principal); R06.02 Shortness of breath; I50.21 Acute systolic (congestive) heart failure; I26.99 Other pulmonary embolism without acute cor pulmonale

== ENCOUNTER → 2019-12-07 | Outpatient (CLI) | payer OTHER | LOC: PET 10:41 | DX: R91.1 Solitary pulmonary nodule (principal); J98.4 Other disorders of lung ==